=== PATIENT | female | born 1985 | race Caucasian/White ===

== ENCOUNTER 2018-07-06 19:17 | Emergency (ER) | payer OTHER, MEDICAID ==
[~2018-07-06] VITALS: Ht 170.2 cm; Wt 138.9 kg
[2018-07-06 19:19] VITALS: BP 171/96
[2018-07-06] MEDS ORDERED: KETOROLAC 30 MG/1 ML ONE (20:06)
[2018-07-06] MEDS ORDERED: PLEASE ENTER ALLERGIES MC SCH (20:30)
[2018-07-06] MEDS ORDERED: KETOROLAC 30 MG/1 ML IM ONE (20:30)
== END 2018-07-06 20:58 | disposition home or self-care (01) ==
LOC: ED 19:46
DX: S16.1XXA Strain of muscle, fascia and tendon at neck level, initial encounter (principal); V89.2XXA Person injured in unspecified motor-vehicle accident, traffic, initial encounter; Y93.89 Activity, other specified; Y92.410 Unspecified street and highway as the place of occurrence of the external cause; Y99.8 Other external cause status; S29.012A Strain of muscle and tendon of back wall of thorax, initial encounter; S39.012A Strain of muscle, fascia and tendon of lower back, initial encounter; S46.912A Strain of unspecified muscle, fascia and tendon at shoulder and upper arm level, left arm, initial encounter
CPT/HCPCS: 71046; 72072; 72110; 96372; 99283; J1885

== ENCOUNTER 2019-08-11 10:56 | Emergency (ER) | payer MEDICAID, OTHER ==
[~2019-08-11] VITALS: Ht 170.2 cm; Wt 128.6 kg
[2019-08-11 12:58] VITALS: BP 128/75
[2019-08-11] MEDS ORDERED: AZITHROMYCIN 500 MG TABLET ONE (13:53)
[2019-08-11] MEDS ORDERED: AMOXICILLIN 500 MG CAPSULE ONE (13:56)
[2019-08-11] MEDS ORDERED: AMOXICILLIN 500 MG CAPSULE PO ONE (14:00)
[2019-08-11] MEDS ORDERED: AMOXICILLIN 500 MG CAPSULE PO SCH (14:00)
== END 2019-08-11 14:01 | disposition home or self-care (01) ==
LOC: ED 13:55
DX: H66.002 Acute suppurative otitis media without spontaneous rupture of ear drum, left ear (principal); J06.9 Acute upper respiratory infection, unspecified; R05 Cough; J02.9 Acute pharyngitis, unspecified
CPT/HCPCS: 93005; 99283